=== PATIENT | female | born 1970 | race Caucasian/White ===

== ENCOUNTER 2017-11-15 05:57 | Emergency (ER) | payer MEDICAID ==
[~2017-11-15] VITALS: Ht 160 cm; Wt 86.5 kg
[~2017-11-15 05:57] MED LIST: CLON0.5T20 PO; DIVA500T2 PO; METH4TAB7 PO; MORP60TA34 PO
[2017-11-15] MEDS ORDERED: DEXAMETHASONE 4 MG/ML, 1ML IVPush ONE (06:30)
[2017-11-15] MEDS ORDERED: SODIUM CHLORIDE 0.9% 1,000ML IVBOLUS ONE (06:30)
[2017-11-15] MEDS ORDERED: SODIUM CHLORIDE FLUSH 10ML SYR IVF ONE (06:30)
[2017-11-15 06:50] LABS: BASOPHILS # (AUTO) 0.02 x10^3/uL (0-0.1); BASOPHILS % (AUTO) 0 % (0-1); EOSINOPHILS # (AUTO) 0.03 x10^3/uL (0-0.4); EOSINOPHILS % (AUTO) 0 % (1-7); LYMPHOCYTES # (AUTO) 1.63 x10^3/uL (1-3.4); LYMPHOCYTES % (AUTO) 19 % (22-44); MD NO; MEAN CORPUSCULAR HEMOGLOBIN 30.6 pg (27.0-34.8); MEAN CORPUSCULAR HGB CONC 33.4 g/dL (32.4-35.8); MEAN CORPUSCULAR VOLUME 91.6 fL (80-100); MEAN PLATELET VOLUME 8.6 fL (7.4-10.4); MONOCYTES % (AUTO) 7 % (2-9); NEUTROPHILS # (AUTO) 6.44 x10^3/uL (1.8-6.8); NEUTROPHILS % (AUTO) 74 % (42-75); PLATELET COUNT 280 x10^3/uL (130-400); RED BLOOD COUNT 5.09 x10^6/uL (3.82-5.3); RED CELL DISTRIBUTION WIDTH 13.4 % (9.6-15.2)
[2017-11-15 07:01] LABS: ALANINE AMINOTRANSFERASE 33 U/L (12-78); ALBUMIN 3.3 g/dL (3.4-5.0); ANION GAP 7 mmol/L (5-15); CALCIUM 8.2 mg/dL (8.5-10.1); CHLORIDE 102 mmol/L (98-107); CREATININE 0.89 mg/dL (0.55-1.02)
[2017-11-15 07:03] LABS: ALKALINE PHOSPHATASE 191 U/L (45-117); BILIRUBIN,TOTAL 0.2 mg/dL (0.2-1.0); TOTAL PROTEIN 6.6 g/dL (6.4-8.2)
[2017-11-15] MEDS ORDERED: DEXAMETHASONE 4 MG/ML, 1ML ONE (07:27)
[2017-11-15] MEDS ORDERED: OMNIPAQUE 350 MG/ML, 150 ML BOTTLE ONE (08:19)
[2017-11-15] MEDS ORDERED: LIDOCAINE GEL 2%, 5ML ONE (09:19)
[2017-11-15] MEDS ORDERED: LIDOCAINE GEL 2%, 5ML TP ONE (09:30)
[2017-11-15 10:19] LABS: MICROSCOPIC NOT IND
[2017-11-15 10:20] LABS: CULTURE INDICATED? NO
[2017-11-15 10:48] VITALS: BP 101/68
== END 2017-11-15 11:14 | disposition home or self-care (01) ==
LOC: ED 10:10
DX: J00 Acute nasopharyngitis [common cold] (principal); J45.909 Unspecified asthma, uncomplicated; J02.8 Acute pharyngitis due to other specified organisms
CPT/HCPCS: 31525; 36415; 70491; 71045; 71275; 80053; 81003; 85025; 87040; 93005; 96361; 96374; 99285; J1100; J7030; Q9967

== ENCOUNTER 2018-01-28 15:59 | Inpatient (IN) | payer MEDICAID ==
[~2018-01-28] VITALS: Ht 157.5 cm; Wt 99.1 kg
[2018-01-28] MEDS ORDERED: FLUO40CA9 PO (16:17)
[2018-01-28 16:43] LABS: BASOPHILS # (AUTO) 0.04 x10^3/uL (0-0.1); BASOPHILS % (AUTO) 1 % (0-1); EOSINOPHILS % (AUTO) 0 % (1-7); LYMPHOCYTES # (AUTO) 1.08 x10^3/uL (1-3.4); LYMPHOCYTES % (AUTO) 23 % (22-44); MD NO; MEAN CORPUSCULAR HEMOGLOBIN 30.1 pg (27.0-34.8); MEAN CORPUSCULAR VOLUME 91.3 fL (80-100); MEAN PLATELET VOLUME 8.7 fL (7.4-10.4); MONOCYTES # (AUTO) 0.49 x10^3/uL (0.2-0.8); MONOCYTES % (AUTO) 11 % (2-9); NEUTROPHILS # (AUTO) 3.09 x10^3/uL (1.8-6.8); NEUTROPHILS % (AUTO) 66 % (42-75); PLATELET COUNT 185 x10^3/uL (130-400); RED CELL DISTRIBUTION WIDTH 13.9 % (9.6-15.2)
[2018-01-28 16:50] LABS: ALBUMIN 2.6 g/dL (3.4-5.0); ANION GAP 7 mmol/L (5-15); CALCIUM 7.8 mg/dL (8.5-10.1); CHLORIDE 104 mmol/L (98-107); CREATININE 0.85 mg/dL (0.55-1.02)
[2018-01-28 18:06] LABS: MICROSCOPIC NOT IND
[2018-01-28 18:19] LABS: CULTURE INDICATED? NO
[2018-01-28] MEDS ORDERED: MORP60TA34 PO (18:56)
[2018-01-28] MEDS ORDERED: SODIUM CHLORIDE FLUSH 10ML SYR IVF PRN (19:30)
[2018-01-28] MEDS ORDERED: ONDANSETRON 2MG/ML, 2ML IVPush PRN (20:00)
[2018-01-28 21:05] VITALS: BP 94/65
[2018-01-28 21:51] VITALS: BP 94/65
[2018-01-28] MEDS: DIVALPROEX 500 MG TABLET.DR PO SCH (22:30)
[2018-01-28] MEDS: SODIUM CHLORIDE 0.9% 1,000 ML IV SCH (22:32)
[2018-01-28] MEDS ORDERED: PIPERONYL BUTOXIDE/PYRETHRINS SHAMPOO TP SCH (23:30)
[2018-01-29 02:40] VITALS: BP 106/71
[2018-01-29] MEDS: DIVALPROEX 500 MG TABLET.DR PO SCH ×2 (09:38→21:01)
[2018-01-29] MEDS: SODIUM CHLORIDE 0.9% 1,000 ML IV SCH ×3 (09:38→23:37)
[2018-01-29] MEDS: FLUOXETINE HCL 20 MG CAPSULE PO SCH (09:38)
[2018-01-29 09:40] VITALS: BP 115/81
[2018-01-29] MEDS: ACETAMINOPHEN 325 MG TABLET PO PRN (12:41)
[2018-01-29 14:00] VITALS: BP 101/63
[2018-01-29 16:45] VITALS: BP 104/71
[2018-01-29 20:11] VITALS: BP 110/74
[2018-01-30 01:31] VITALS: BP 120/79
[2018-01-30] MEDS: ACETAMINOPHEN 325 MG TABLET PO PRN ×2 (02:42→08:43)
[2018-01-30 07:19] VITALS: BP 124/79
[2018-01-30] MEDS: DIVALPROEX 500 MG TABLET.DR PO SCH (08:43)
[2018-01-30] MEDS: FLUOXETINE HCL 20 MG CAPSULE PO SCH (08:43)
[2018-01-30] MEDS: SODIUM CHLORIDE 0.9% 1,000 ML IV SCH (08:44)
== END 2018-01-30 14:20 | disposition home or self-care (01) | DRG 917 ==
LOC: SUATTDRO 19:36 → ED 19:57 → EDIP 20:05 → 4EST 21:04
PROVIDERS: ADMIT Hospitalist; ATTEND Hospitalist
DX: T40.601A Poisoning by unspecified narcotics, accidental (unintentional), initial encounter (principal); E43 Unspecified severe protein-calorie malnutrition; R56.9 Unspecified convulsions; Z68.41 Body mass index [BMI] 40.0-44.9, adult; G43.909 Migraine, unspecified, not intractable, without status migrainosus; J45.909 Unspecified asthma, uncomplicated; R09.02 Hypoxemia; R32 Unspecified urinary incontinence; Z90.710 Acquired absence of both cervix and uterus; Y92.89 Other specified places as the place of occurrence of the external cause
CPT/HCPCS: 36415; 76830; 80048; 81003; 82040; 85025; 93005; 99285; J2405; J7030